=== PATIENT | female | born 1955 | race Caucasian/White ===

== ENCOUNTER 2017-08-16 13:40 | Emergency (ER) | payer OTHER ==
[~2017-08-16] VITALS: Ht 165.1 cm; Wt 104.5 kg
[~2017-08-16 13:40] MED LIST: LISI-360 PO; SYNT112T PO; TIMO0.5S6 OU
[2017-08-16 14:21] VITALS: BP 213/98; PULSE 77; RESP 20; TEMP 97.8; O2SAT 97
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
[2017-08-16] MEDS ORDERED: ONDANSETRON HCL 4 MG/2 ML VIAL IV PUSH ONE ×2 (17:45→20:00)
[2017-08-16] MEDS ORDERED: MORPHINE SULFATE 2 MG/ML SYRINGE IV PUSH ONE ×2 (17:45→20:00)
[2017-08-16] MEDS ORDERED: LEVO112T2 PO (17:59)
[2017-08-16] MEDS ORDERED: LISI10TA3 PO (17:59)
[2017-08-16] MEDS ORDERED: TIMO0.5S30 EACH EYE (17:59)
[2017-08-16 18:00] VITALS: BP 186/89; PULSE 68; RESP 14; O2SAT 98
[2017-08-16 18:14] LABS: AUTOMATED NEUTROPHIL # 8.4 TH/MM3 (1.8-7.7); BASOPHIL # 0.1 TH/MM3 (0-0.2); BASOPHIL % 0.5 % (0.0-2.0); EOSINOPHIL # 0.1 TH/MM3 (0-0.4); EOSINOPHIL % 0.7 % (0.0-4.0); HEMATOCRIT 42.2 % (35.0-46.0); HEMOGLOBIN 14.2 GM/DL (11.6-15.3); LYMPH % 12.7 % (9.0-44.0); LYMPHOCYTE # 1.3 TH/MM3 (1.0-4.8); MEAN CELL VOLUME 89.1 FL (80.0-100.0); MEAN CORPUSCULAR HGB CONC 33.7 % (32.0-36.0); MEAN PLATELET VOLUME 10.1 FL (7.0-11.0); MONO % 5.9 % (0.0-8.0); MONOCYTE # 0.6 TH/MM3 (0-0.9); NEUT % 80.2 % (16.0-70.0); PLATELET COUNT 235 TH/MM3 (150-450); RED BLOOD COUNT 4.73 MIL/MM3 (4.00-5.30); RED CELL DISTRIBUTION WIDTH 13.9 % (11.6-17.2); WHITE BLOOD COUNT 10.5 TH/MM3 (4.0-11.0)
[2017-08-16 18:23] LABS: PROTHROMBIN TIME - PATIENT 10.1 SEC (9.8-11.6)
[2017-08-16 18:34] LABS: BICARBONATE 26.6 MEQ/L (21.0-32.0); CALCIUM 9.4 MG/DL (8.5-10.1); CREATININE 0.7 MG/DL (0.50-1.00)
[2017-08-16] MEDS ORDERED: IOHEXOL 350 MG/ML 10 ML VIAL (for RAD DIAG) IVCONTRAST ONE (18:50)
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
[2017-08-16] MEDS ORDERED: HYDR-3516 PO (19:43)
[2017-08-16] MEDS ORDERED: DICL75TA PO (19:43)
[2017-08-16 19:48] VITALS: BP 172/88; PULSE 72; RESP 18; TEMP 97.9; O2SAT 98
[2017-08-16] MEDS ORDERED: KETOROLAC TROMETHAMINE 30 MG/ML (IVP) VIAL IV PUSH ONE (20:00)
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
== END 2017-08-16 20:29 | disposition home or self-care (01) ==
LOC: NEPE 13:40
DX: S20.211A Contusion of right front wall of thorax, initial encounter (principal); M25.511 Pain in right shoulder; V44.5XXA Car driver injured in collision with heavy transport vehicle or bus in traffic accident, initial encounter
CPT/HCPCS: 71046; 71260; 73030; 80048; 85025; 85610; 85730; 96374; 96375; 96376; 99285; J1885; J2270; J2405; Q9967